=== PATIENT | female | born 1945 | race Caucasian/White ===

== ENCOUNTER → 2021-09-07 | Outpatient (CLI) | payer BC, MEDICARE | LOC: ECHO 09-03 09:45 | DX: I10 Essential (primary) hypertension (principal); R01.1 Cardiac murmur, unspecified; I08.3 Combined rheumatic disorders of mitral, aortic and tricuspid valves | CPT/HCPCS: ECHO; 93306 ==

== ENCOUNTER → 2021-12-08 | Outpatient (CLI) | payer MEDICARE, BC | LOC: MAMO 08-11 13:00 | DX: Z12.31 Encounter for screening mammogram for malignant neoplasm of breast (principal) | CPT/HCPCS: 77063; 77067 ==

== ENCOUNTER → 2021-12-11 | Outpatient (CLI) | payer MEDICARE, BC | LOC: MAMO 10:49 | DX: R92.8 Other abnormal and inconclusive findings on diagnostic imaging of breast (principal) | CPT/HCPCS: 77065 ==

== ENCOUNTER → 2022-01-01 | Day surgery (SDC) | payer MEDICARE, BC ==
[~2022-01-01] MED LIST: ALLOPURINOL100 MG PO; BENICAR20 MG PO; BENZONATATE200 MG PO; CYMBALTA60 MG PO; GLIPIZIDE ER5 MG PO; HYDROCHLOROTHIA25 MG PO; JARDIANCE25 MG PO; LATANOPROST 0.7.5 ML OP; LEVOTHYROXINE100 MC2 PO; METFORMIN HCL1000 MG PO; METOPROLOL SUCC25 MG PO; NAMENDA10 MG PO; VITAMIN D21250 MCG PO
== END | disposition home or self-care (01) ==
LOC: OR 05:59
DX: Z12.11 Encounter for screening for malignant neoplasm of colon (principal); K57.30 Diverticulosis of large intestine without perforation or abscess without bleeding; I10 Essential (primary) hypertension; E66.01 Morbid (severe) obesity due to excess calories; E11.9 Type 2 diabetes mellitus without complications; Z68.41 Body mass index [BMI] 40.0-44.9, adult; Z79.84 Long term (current) use of oral hypoglycemic drugs; Z79.899 Other long term (current) drug therapy; Z88.0 Allergy status to penicillin; Z88.2 Allergy status to sulfonamides; Z91.040 Latex allergy status
CPT/HCPCS: 82962; J2704; J7040

== ENCOUNTER → 2022-01-28 | Outpatient (CLI) | payer MEDICARE, BC | LOC: RAD 11:46 | DX: R05.9 Cough, unspecified (principal) | CPT/HCPCS: 71046 ==